=== PATIENT | male | born 1960 | race Caucasian/White ===

== ENCOUNTER 2019-07-10 19:41 | Emergency (ER) | payer OTHER ==
[~2019-07-10] VITALS: Ht 167.6 cm; Wt 74.4 kg
[2019-07-10] MEDS ORDERED: DILTIAZEM ER240 M3 (19:53)
[2019-07-10] MEDS ORDERED: CARDURA1 MG (19:53)
== END 2019-07-10 20:35 | disposition home or self-care (01) ==
LOC: ER 19:41
DX: M54.32 Sciatica, left side (principal)